=== PATIENT | female | born 1960 | race Caucasian/White ===

== ENCOUNTER → 2018-11-18 | Outpatient (CLI) | payer OTHER ==
[~2018-11-18] MED LIST: ASPIR 8181 MG PO; ASPIRIN325 PO; COLACE100 MG PO; EFFIENT10 MG PO; LIPITOR 20 MG T20 M1 PO; LISINOPRIL5 MG PO; NIASPAN 500 MG500 M1 PO; NICOTINE TRANSD21 M1; NICOTINE TRANSD21 M1 TD; NITROGLYCERIN0.4 MG SUBLING; NOHOMEMEDICATIONS; TOPROL XL25 MG PO; ZOCOR80 MG PO
[2018-11-18 09:32] LABS: ALBUMIN 4.1 g/dL (3.4-5.0); ALKALINE PHOSPHATASE 85 U/L (46-116); ANION GAP 10 mmol/L (7-16); BUN 16 mg/dL (7-18); CALCIUM 9.4 mg/dL (8.5-10.1); CHLORIDE 103 mmol/L (98-107); CO2 28 mmol/L (21-32); CREATININE 1.1 mg/dL (0.6-1.3); GLUCOSE 103 mg/dL (70-99); POTASSIUM 4.7 mmol/L (3.5-5.1); SGOT 19 U/L (15-37); SGPT 32 U/L (30-65); SODIUM 141 mmol/L (136-145); TOTAL BILIRUBIN 0.4 mg/dL (<0.1-1.0); TOTAL PROTEIN 7.6 g/dL (6.4-8.2)
[2018-11-18 09:44] LABS: CHOLESTEROL 143 mg/dL (<200); HDL CHOLESTEROL 36 mg/dL (>40); LDL CHOLESTEROL 90 mg/dL (<100); SERUM ASSESSMENT Clear; TRIGLYCERIDE 88 mg/dL (<150); VLDL 18 mg/dL (<40)
== END ==
LOC: M.LAB 08:21
PROVIDERS: Nurse Practitioner Family
DX: E78.2 Mixed hyperlipidemia (principal)

== ENCOUNTER → 2018-11-28 | Outpatient (CLI) | payer OTHER ==
[2018-11-28 14:13] VITALS: BP 115/68
== END ==
LOC: M.CT 11-20 16:05
DX: I70.213 Atherosclerosis of native arteries of extremities with intermittent claudication, bilateral legs (principal); N28.1 Cyst of kidney, acquired; K57.30 Diverticulosis of large intestine without perforation or abscess without bleeding; E78.5 Hyperlipidemia, unspecified; I10 Essential (primary) hypertension; I25.2 Old myocardial infarction; I70.0 Atherosclerosis of aorta; Z88.1 Allergy status to other antibiotic agents; Z88.8 Allergy status to other drugs, medicaments and biological substances

== ENCOUNTER → 2018-12-19 | Outpatient (CLI) | payer OTHER ==
[~2018-12-19] VITALS: Ht 165.1 cm; Wt 79.4 kg
[2018-12-19 08:15] VITALS: BP 119/74
[2018-12-19 08:26] LABS: HEMATOCRIT 39.9 % (37.0-47.0); HEMOGLOBIN 13.3 gm/dL (12.0-15.0); MCHC 33.3 g/dL (28.0-37.0); MCV 87.2 fL (80.0-100.0); RBC 4.57 mil/uL (4.20-5.00); RDW-CV 14.5 % (10.5-14.5); WBC 7.7 thou/uL (4.0-11.0)
[2018-12-19 08:33] LABS: CALCIUM 9.2 mg/dL (8.5-10.1); POTASSIUM 4.2 mmol/L (3.5-5.1)
[2018-12-19 08:35] LABS: APTT 28.2 Seconds (25.0-31.3); PROTIME 10.2 Seconds (9.20-11.50)
== END | disposition home or self-care (01) ==
LOC: M.INT 07:50
PROVIDERS: Radiology Diagnostic Radiology
DX: I70.211 Atherosclerosis of native arteries of extremities with intermittent claudication, right leg (principal); M79.7 Fibromyalgia; I25.2 Old myocardial infarction; F17.210 Nicotine dependence, cigarettes, uncomplicated; Z98.890 Other specified postprocedural states; Z82.49 Family history of ischemic heart disease and other diseases of the circulatory system; Z83.3 Family history of diabetes mellitus; Z98.51 Tubal ligation status; Z88.8 Allergy status to other drugs, medicaments and biological substances; Z79.82 Long term (current) use of aspirin; Z79.899 Other long term (current) drug therapy; Z79.01 Long term (current) use of anticoagulants

== ENCOUNTER 2021-01-05 13:12 | Emergency (ER) | payer OTHER ==
[~2021-01-05] VITALS: Ht 162.6 cm; Wt 72.6 kg
[2021-01-05 13:32] LABS: URINE BILIRUBIN NEGATIVE (Negative); URINE BLOOD NEGATIVE (Negative); URINE CLARITY CLEAR; URINE COLOR YELLOW; URINE GLUCOSE-RANDOM NEGATIVE (Negative); URINE KETONES NEGATIVE (Negative); URINE LEUKOCYTES-REFLEX NEGATIVE (Negative); URINE NITRITE-REFLEX NEGATIVE (Negative); URINE PROTEIN NEGATIVE (Negative); URINE UROBILINOGEN 0.2 E.U./dl (0.2-1.0)
[2021-01-05 13:36] LABS: ABSOLUTE BASOPHILS 0.1 thou/uL (0.0-0.2); ABSOLUTE EOSINOPHILS 0.2 thou/uL (0.0-0.7); ABSOLUTE LYMPHOCYTES 3.7 thou/uL (0.8-5.3); ABSOLUTE NEUTROPHILS 4.7 thou/uL (1.6-8.1); EOSINOPHILS 2.1 %; HEMATOCRIT 39.3 % (37.0-47.0); HEMOGLOBIN 13.2 gm/dL (12.0-15.0); LYMPHOCYTES 37.7 %; MCHC 33.6 g/dL (28.0-37.0); MCV 86.4 fL (80.0-100.0); MONOCYTES 10.4 %; MPV 7.1 fl. (7.2-11.1); NUCLEATED RBCS 0 /100WBC; PLATELET COUNT* 448 thou/uL (150-400); POLYS 48.8 %; RBC 4.55 mil/uL (4.20-5.00); RDW-CV 14.9 % (10.5-14.5); WBC 9.7 thou/uL (4.0-11.0)
[2021-01-05 13:45] LABS: CALCIUM 9.6 mg/dL (8.5-10.1); POTASSIUM 3.7 mmol/L (3.5-5.1)
[2021-01-05 13:50] LABS: ALBUMIN 4.3 g/dL (3.4-5.0); TOTAL BILIRUBIN 0.3 mg/dL (<0.1-1.0); TOTAL PROTEIN 8.6 g/dL (6.4-8.2)
[2021-01-05] MEDS ORDERED: COLACE100 MG PO (15:02)
[2021-01-05 15:47] VITALS: BP 132/71
== END 2021-01-05 15:48 | disposition home or self-care (01) ==
LOC: M.ERS 13:12
PROVIDERS: Nurse Practitioner Family
DX: K59.00 Constipation, unspecified (principal); M79.7 Fibromyalgia; K58.9 Irritable bowel syndrome, unspecified; N80.9 Endometriosis, unspecified; F17.210 Nicotine dependence, cigarettes, uncomplicated; Z88.1 Allergy status to other antibiotic agents; Z98.51 Tubal ligation status; Z90.721 Acquired absence of ovaries, unilateral

== ENCOUNTER 2021-08-18 04:22 | Emergency (ER) | payer OTHER ==
[~2021-08-18] VITALS: Ht 162.6 cm; Wt 77.1 kg
[2021-08-18 05:20] LABS: HEMOGLOBIN 11.8 gm/dL (12.0-15.0); MCHC 33.9 g/dL (28.0-37.0); MPV 6.9 fl. (7.2-11.1); NUCLEATED RBCS 0 /100WBC
[2021-08-18 05:22] LABS: ABSOLUTE BASOPHILS 0.1 thou/uL (0.0-0.2); ABSOLUTE EOSINOPHILS 0.1 thou/uL (0.0-0.7); ABSOLUTE LYMPHOCYTES 2.3 thou/uL (0.8-5.3); ABSOLUTE MONOCYTES 1.3 thou/uL (0.0-1.2); ABSOLUTE NEUTROPHILS 8.5 thou/uL (1.6-8.1); BASOPHILS 0.6 %; EOSINOPHILS 1.1 %; HEMATOCRIT 34.8 % (37.0-47.0); LYMPHOCYTES 18.4 %; MCH 28.3 pg (26.0-34.0); MCV 83.6 fL (80.0-100.0); MONOCYTES 10.9 %; PLATELET COUNT* 506 thou/uL (150-400); RBC 4.16 mil/uL (4.20-5.00); RDW-CV 13.4 % (10.5-14.5); WBC 12.3 thou/uL (4.0-11.0)
[2021-08-18 05:31] LABS: CALCIUM 8.9 mg/dL (8.5-10.1); POTASSIUM 3.7 mmol/L (3.5-5.1)
[2021-08-18 05:35] LABS: ALBUMIN 3.4 g/dL (3.4-5.0); TOTAL BILIRUBIN 0.4 mg/dL (<0.1-1.0); TOTAL PROTEIN 7.7 g/dL (6.4-8.2)
[2021-08-18 06:09] LABS: URINE BILIRUBIN NEGATIVE (Negative); URINE BLOOD TRACE (Negative); URINE CLARITY CLEAR; URINE COLOR YELLOW; URINE GLUCOSE-RANDOM NEGATIVE (Negative); URINE KETONES NEGATIVE (Negative); URINE LEUKOCYTES-REFLEX NEGATIVE (Negative); URINE NITRITE-REFLEX NEGATIVE (Negative); URINE PROTEIN NEGATIVE (Negative); URINE UROBILINOGEN 0.2 E.U./dl (0.2-1.0)
[2021-08-18 06:52] LABS: BACTERIA-REFLEX None Seen /HPF (None Seen); SQUAMOUS NONE SEEN /LPF (0-3); URINE RBC None Seen /HPF (0-2); URINE WBC-REFLEX None Seen /HPF (0-5)
[2021-08-18 06:53] LABS: CASTS None Seen /LPF (None Seen); CRYSTALS None Seen /LPF (None Seen); MUCUS None Seen strn/LPF (None Seen)
[2021-08-18] MEDS ORDERED: COLACE100 MG PO (06:59)
[2021-08-18] MEDS ORDERED: DICYCLOMINE HCL20 MG PO (06:59)
[2021-08-18] MEDS ORDERED: REGLAN 10 MG TA10 MG PO (06:59)
[2021-08-18 07:15] VITALS: BP 122/66
[2021-08-18 07:51] LABS: APTT 30.5 Seconds (25.0-31.3); INR 1.1; PROTIME 10.9 Seconds (9.20-11.50)
--- NOTE | 2021-08-18 12:26 | EKG ---
[place] [address] ELECTROCARDIOGRAM REPORT Name: ARYAN NICE Room: [facility]#: [id number] Admission: 08/18/21 Attend Phys: Discharge: 08/18/21 Date of : 64 Date of Service: 08/18/21 0445 Report #: [id number] THIS REPORT FOR: //name// [facility] ED Test Date: 2021-08-18 Test Time: 04:45:22 Pat Name: ARYAN NICE Department: Room: Gender: Registered Private Duty Nurse: : 1960 Requested By: Patti Collins Order Number: [id number] MD: Bart Ansari Measurements Intervals [place] Rate: 90 P: 79 RI: 173 QRS: 67 QRSD: 99 T: 57 QT: 357 QTc: 437 Interpretive Statements Sinus rhythm Compared to ECG 06/14/2016 08:00:58 No significant changes Electronically Signed On 08-18-2021 12:26:00 [employer] by Bart Ansari [email or web address] <ELECTRONICALLY SIGNED> By: Bart Ansari MD, [facility] 08/18/21 1226 0445 0445 Bart Ansari MD, [facility] /EPI
== END 2021-08-18 07:17 | disposition home or self-care (01) ==
LOC: M.ERS 04:22
PROVIDERS: Personal Emergency Response Attendant
DX: K58.1 Irritable bowel syndrome with constipation (principal); K80.50 Calculus of bile duct without cholangitis or cholecystitis without obstruction; F17.210 Nicotine dependence, cigarettes, uncomplicated; Z98.51 Tubal ligation status; Z79.899 Other long term (current) drug therapy; Z88.8 Allergy status to other drugs, medicaments and biological substances